=== PATIENT | male | born 1965 | race Caucasian/White ===

== ENCOUNTER → 2018-04-06 10:42 | Outpatient (CLI) | payer MEDICARE ==
[2015-03-08 09:40] VITALS: BMI 54.2
[~2018-04-06 10:42] MED LIST: ALDACTONE100 MG PO; CHRONULAC30 ML PO; LASIX40 MG PO; LIBRIUM25 MG PO; MULTI-DAY VITAM1 TAB PO; SYNTHROID25 MCG; VITAMIN B-12500 MC1 PO; ZESTRIL20 MG PO
== END | disposition home or self-care (01) ==
LOC: D.US 04-05 07:00
DX: K43.2 Incisional hernia without obstruction or gangrene (principal)

== ENCOUNTER → 2020-07-10 10:14 | Outpatient (CLI) | payer MEDICARE ==
[2015-03-08 09:40] VITALS: BMI 54.2
== END | disposition home or self-care (01) ==
LOC: D.CT 06-22 09:30
PROVIDERS: ATTEND Family Medicine
DX: Z94.4 Liver transplant status (principal)